=== PATIENT | male | born 1985 | race Caucasian/White ===

== ENCOUNTER 2018-01-20 10:45 | Emergency (ER) | payer SELFPAY ==
[2018-01-20 10:58] VITALS: BP 179/124
[2018-01-20] MEDS ORDERED: DEXAMETHASONE SOD PHOS INJ 10 MG/1 ML VIAL IM ONE (11:13)
[2018-01-20] MEDS ORDERED: KETOROLAC TROMETHAMINE INJ/PF 30 MG/1 ML SDV IM ONE (11:13)
--- NOTE | 2018-01-20 11:24 | ER Document Report ---
HPI - HPI Pain Level: 5 Notes: Patient is a 32-year-old male with no significant past medical history who presents to the ED complaining of a possible pinched nerve to his left shoulder area 1 week. 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 Patient states that he uses that arm often. Patient states that on occasion he will have tingling into his left thumb. Patient states that he also has muscle soreness and tightness in that area. He did have someone try to massage it out, but did not resolve his symptoms. Patient denies any injury. Patient states that he has not had any neck pain. Denies any drug allergies. Denies any smoking or IV drug use. Denies any headache, fever, head injury, changes in vision/speech/mentation/hearing, URI, sore throat, chest pain, palpitations, syncope, cough, shortness of breath, wheeze, dyspnea, abdominal pain, nausea/vomiting/diarrhea, urinary retention, dysuria, hematuria , loss of control of bowel or bladder, muscle paralysis/weakness, or rash. - ROS Systems Reviewed and Negative: Yes All other systems reviewed and negative - MUSCULOSKELETAL Musculoskeletal: REPORTS: Extremity pain - L shoulder Past Medical History - Social History Smoking Status: Never Smoker Family History: Reviewed & Not Pertinent Patient has suicidal ideation: No Patient has homicidal ideation: No Pulmonary Medical History: Denies: Hx Asthma Endocrine Medical History: Denies: Hx Diabetes Mellitus Type 2 Renal/ Medical History: Denies: Hx Peritoneal Dialysis Psychiatric Medical History: Reports: Hx Anxiety, Hx Post Traumatic Stress Disorder - Immunizations Hx Diphtheria, Pertussis, Tetanus Vaccination: No Vertical Provider Document - CONSTITUTIONAL Agree With Documented VS: Yes Notes: PHYSICAL EXAMINATION: GENERAL: Well-appearing, well-nourished and in no acute distress. A&Ox4. Answers questions appropriately. HEAD: Atraumatic, normocephalic. EYES: Pupils equal round and reactive to light, extraocular movements intact, sclera anicteric, conjunctiva are normal. NECK: Normal range of motion, supple without lymphadenopathy. No rigidity. No midline tenderness. Spurling negative. + mild tenderness to the left c- paraspinal mm and into the left trapezius muscle which correlates with pain described. LUNGS: Breath sounds clear to auscultation bilaterally and equal. No wheezes rales or rhonchi. HEART: Regular rate and rhythm without murmurs, rubs, gallops. Musculoskeletal: LUE and Ext's b/l otherwise: FROM to passive/active. Strength 5+/5. No deficits noted. No bony tenderness of extremities. N/V intact. Negative impingement test. Tinel/phalen negative at the wrist. Back: FROM to passive/active. Strength 5+/5. No vertebral point tenderness, stepoffs, or deformities. No other bony tenderness or ecchymosis. Extremities: No cyanosis, clubbing, or edema b/l. Peripheral pulses 2+. Capillary refill less than 2 seconds. NEUROLOGICAL: Cranial nerves grossly intact. Normal speech, normal gait. Normal sensory, motor exams. Reflexes 2+ b/l. PSYCH: Normal mood, normal affect. SKIN: Warm, Dry, normal turgor, no rashes or lesions noted. - INFECTION CONTROL TRAVEL OUTSIDE OF THE [place] IN LAST 30 DAYS: No Course - Re-evaluation Re-evalutation: 01/20/18 11:21 Patient is an afebrile, well-hydrated, 32-year-old male who presents to the ED with left trapezius muscle strain/spasm with neuritis down his left upper extremity. Vitals are acceptable without any significant tachycardia, tachypnea , or hypoxia. PE is otherwise unremarkable for any focal neurological deficits. Patient is nontoxic-appearing. Patient has reproducible tenderness on exam to left trapezius muscle and left C paraspinal muscle. There is no bony tenderness. No labs or imaging warranted at this time based on H&P. Toradol and Decadron given today. Low suspicion for any meningitis, fracture, expanding/ruptured AAA, cauda equina syndrome, epidural mass lesion/abscess, herniated disc causing severe spinal stenosis, or other systemic infection at this time. Patient is aware that his condition can change from initial presentation and that he needs monitor symptoms closely for any acute changes. I will send him home with a prescription for baclofen and naproxen. Conservative measures otherwise for symptoms. BP elevated, pt to have rechecked with PCM and consider medications, risks reviewed. Recheck with your PCM in 3-5 days. Consider consult orthopedics. Return to the ED with any worsening/ concerning symptoms otherwise as reviewed in discharge. Patient is in agreement. - Vital Signs Vital signs: Temp Pulse Resp BP Pulse Ox 97.4 F 89 18 179/124 H 98 07/02/18 10:57 01/20/18 10:57 01/20/18 10:57 01/20/18 10:57 01/20/18 10:57 Discharge - Discharge Clinical Impression: Trapezius muscle spasm Strain of left trapezius muscle Qualifiers: Encounter type: initial encounter Qualified Code(s): S46.812A - Strain of other muscles, fascia and tendons at shoulder and upper arm level, left arm, initial encounter Condition: Stable Disposition: HOME, SELF-CARE Instructions: Muscle Strain ([facility]), Muscle Relaxers ([facility]) Additional Instructions: Rest, Ice, Compression Tylenol/ibuprofen as needed Light stretches daily Strength exercises as able Moist heat and massage may help F/u with your PCP in 3-5 days for a recheck Consider consult(s) with Orthopedics/physical therapy for ongoing/worsening symptoms Return to the ED with any worsening symptoms and/or development of fever, headache, chest pain, palpitations, syncope, shortness of breath, trouble breathing, abdominal pain, n/v/d, muscle weakness/paralysis, numbness/tingling, swelling, redness, or other worsening symptoms that are concerning to you. Your blood pressure is elevated and puts you at higher risk for heart attack and strokes. He should have this checked by her primary care provider and consider medication therapy and lifestyle changes. Prescriptions: Baclofen [Baclofen 10 mg Tablet] 5 - 10 mg PO BID PRN #15 tablet PRN Reason: Naproxen 500 mg PO BID PRN #30 tablet PRN Reason: Forms: Elevated Blood Pressure, Return to Work Referrals: [facility] [Provider Group] - Follow up as needed [facility] [Provider Group] - Follow up as needed
== END 2018-01-20 11:32 | disposition home or self-care (01) ==
LOC: ER 10:45
DX: S29.012A Strain of muscle and tendon of back wall of thorax, initial encounter (principal); X58.XXXA Exposure to other specified factors, initial encounter; M62.830 Muscle spasm of back; M79.2 Neuralgia and neuritis, unspecified; R20.2 Paresthesia of skin
CPT/HCPCS: 99283; 96372; J1885; J1100

== ENCOUNTER 2018-11-22 22:50 | Emergency (ER) | payer SELFPAY ==
[2018-11-23] MEDS ORDERED: ASPIRIN 81 MG TABLET, CHEWABLE PO ONE (01:09)
[2018-11-23 01:22] LABS: ABSOLUTE BASOPHILS # (AUTO) 0.1 10^3/uL (0.0-0.2); ABSOLUTE EOSINOPHILS # (AUTO) 0.1 10^3/uL (0.0-0.6); ABSOLUTE LYMPHOCYTES (AUTO) 1.6 10^3/uL (0.5-4.7); ABSOLUTE MONOCYTES (AUTO) 0.6 10^3/uL (0.1-1.4); ABSOLUTE NEUT (AUTO) 6.3 10^3/uL (1.7-8.2); BASOPHILS % (AUTO) 0.6 % (0-2); EOSINOPHILS % (AUTO) 0.8 % (0-6); HEMATOCRIT 41.8 % (37.9-51.0); HEMOGLOBIN 14.3 g/dL (13.5-17.0); LYMPHOCYTES % (AUTO) 18.7 % (13-45); MEAN CORPUSCULAR HEMOGLOBIN 30.1 pg (27.0-33.4); MEAN CORPUSCULAR HGB CONC 34.3 g/dL (32.0-36.0); MEAN CORPUSCULAR VOLUME 88 fl (80-97); MONOCYTES % (AUTO) 7.3 % (3-13); PLATELET COUNT 294 10^3/uL (150-450); RED BLOOD COUNT 4.76 10^6/uL (4.35-5.55); RED CELL DISTRIBUTION WIDTH 12.9 % (11.5-14.0); SEGMENTED NEUTROPHILS % (AUTO) 72.6 % (42-78); TOTAL CELLS COUNTED % (AUTO) 100 %; WHITE BLOOD COUNT 8.7 10^3/uL (4.0-10.5)
[2018-11-23 01:51] LABS: ALANINE AMINOTRANSFERASE 38 U/L (21-72); ALBUMIN 4.7 g/dL (3.5-5.0); ALKALINE PHOSPHATASE 70 U/L (38-126); ANION GAP 12 (5-19); ASPARTATE AMINO TRANSFERASE 29 U/L (17-59); BILIRUBIN,DIRECT 0.3 mg/dL (0.0-0.4); BILIRUBIN,TOTAL 0.3 mg/dL (0.2-1.3); BLOOD UREA NITROGEN 18 mg/dL (7-20); CALCIUM 9.7 mg/dL (8.4-10.2); CARBON DIOXIDE 27 mmol/L (22-30); CHLORIDE 105 mmol/L (98-107); CREATINE KINASE 304 U/L (55-170); GLUCOSE 108 mg/dL (75-110); SODIUM 144.4 mmol/L (137-145)
--- NOTE | 2018-11-23 01:54 | RADIOLOGY REPORT (SQ) ---
EXAM DESCRIPTION: XR CHEST 1 VIEW COMPLETED DATE/TME: 11/23/2018 01:09 CLINICAL HISTORY: 33 years, Male, CP COMPARISON: 06/24/2016 chest NUMBER OF VIEWS: 1 TECHNIQUE: Portable chest LIMITATIONS: None. FINDINGS: Heart size normal. Lungs clear. No pneumothorax IMPRESSION: Negative chest copyright 2010 [employer]- All Rights Reserved
[2018-11-23 02:03] LABS: CREATINE KINASE MB 2.61 ng/mL (<4.55)
[2018-11-23 02:06] LABS: TROPONIN I < 0.012 ng/mL
[2018-11-23] MEDS ORDERED: LISINOPRIL 10 MG TABLET PO ONE (02:33)
[2018-11-23] MEDS ORDERED: HYDROCHLOROTHIAZIDE 12.5 MG TABLET PO ONE (02:33)
[2018-11-23 04:01] LABS: URINE AMPHETAMINES SCREEN NEGATIVE; URINE BARBITURATES SCREEN NEGATIVE; URINE BENZODIAZEPINES SCREEN NEGATIVE; URINE COCAINE SCREEN NEGATIVE; URINE MARIJUANA (THC) SCREEN UNCONFIRMED POSITIVE; URINE METHADONE SCREEN NEGATIVE; URINE PHENCYCLIDINE SCREEN NEGATIVE
--- NOTE | 2018-11-23 05:37 | ER Document Report ---
ED General - General Chief Complaint: Chest Tightness Stated Complaint: POSSIBLE ANXIETY Time Seen by Provider: 11/23/18 01:08 Primary Care Provider: [facility] [Provider Group] - Follow up as needed [facility] [Provider Group] - Follow up as needed Notes: Patient is a 33-year-old male presents to the emergency department feeling anxious. Patient states intermittently for the last couple of days he has felt a dull pressure on the left side of his chest. Patient states he knows he has a history of anxiety and used to take Xanax. States he stopped taking his Xanax 6 months ago because he ran out. States he recently lost his insurance and has had no follow-up. Patient states he has been told multiple times that he has high blood pressure but states no medical provider has ever placed him on medications. Patient's denying any headache, blurred vision, dizziness. Patient currently states he is chest pain-free. Patient's denying any nausea, vomiting, diarrhea, is afebrile. Patient voices that when he gets anxious he feels as though he may develop chest pain and then he does develop chest pain. Again patient is currently denying any chest pain at this time. Also continues to deny shortness of breath. TRAVEL OUTSIDE OF THE [place] IN LAST 30 DAYS: No - Related Data Allergies/Adverse Reactions: No Known Allergies Allergy (Verified 11/23/18 03:55) Past Medical History - General Information source: Patient - Social History Smoking Status: Former Smoker Frequency of alcohol use: Occasional Drug Abuse: Marijuana Family History: Reviewed & Not Pertinent Patient has suicidal ideation: No Patient has homicidal ideation: No - Past Medical History Cardiac Medical History: Reports: Hx Hypertension Pulmonary Medical History: Denies: Hx Asthma Endocrine Medical History: Denies: Hx Diabetes Mellitus Type 2 Renal/ Medical History: Denies: Hx Peritoneal Dialysis Psychiatric Medical History: Reports: Hx Anxiety, Hx Post Traumatic Stress Disorder - Immunizations Hx Diphtheria, Pertussis, Tetanus Vaccination: No Review of Systems - Review of Systems Constitutional: denies: Fever EENT: No symptoms reported Cardiovascular: See HPI Respiratory: No symptoms reported Gastrointestinal: No symptoms reported Genitourinary: No symptoms reported Male Genitourinary: No symptoms reported Musculoskeletal: No symptoms reported Skin: No symptoms reported Hematologic/Lymphatic: No symptoms reported Neurological/Psychological: See HPI Physical Exam - Vital signs Vitals: Pulse Ox 98 11/23/18 01:31 - Notes Notes: GENERAL: Alert, interacts well. No acute distress. HEAD: Normocephalic, atraumatic. EYES: Pupils equal, round, and reactive to light. Extraocular movements intact. ENT: Oral mucosa moist, tongue midline. NECK: Full range of motion. Supple. Trachea midline. LUNGS: Clear to auscultation bilaterally, no wheezes, rales, or rhonchi. No respiratory distress. HEART: Regular rate and rhythm. No murmur ABDOMEN: Soft, non-tender. Non-distended. Bowel sounds present in all 4 quadrants. EXTREMITIES: Moves all 4 extremities spontaneously. No edema, normal radial and dorsalis pedis pulses bilaterally. No cyanosis. 5 out of 5 strength all 4 extremities BACK: no cervical, thoracic, lumbar midline tenderness. No saddle anesthesia, normal distal neurovascular exam. NEUROLOGICAL: Alert and oriented x3. Normal speech. cranial nerves II through XII grossly intact PSYCH: Normal affect, normal mood. SKIN: Warm, dry, normal turgor. No rashes or lesions noted. Course - Re-evaluation Re-evalutation: 11/23/18 05:35 Laboratory 11/23/18 11/23/18 11/23/18 01:10 01:10 01:10 WBC 8.7 RBC 4.76 Hgb 14.3 Hct 41.8 MCV 88 MCH 30.1 MCHC 34.3 RDW 12.9 Plt Count 294 Seg Neutrophils % 72.6 Lymphocytes % 18.7 Monocytes % 7.3 Eosinophils % 0.8 Basophils % 0.6 Absolute Neutrophils 6.3 Absolute Lymphocytes 1.6 Absolute Monocytes 0.6 Absolute Eosinophils 0.1 Absolute Basophils 0.1 Sodium 144.4 Potassium 4.0 Chloride 105 Carbon Dioxide 27 Anion Gap 12 BUN 18 Creatinine 1.12 Est GFR ( Amer) > 60 Est GFR (Non-Af Amer) > 60 Glucose 108 Calcium 9.7 Total Bilirubin 0.3 Direct Bilirubin 0.3 Neonat Total Bilirubin Not Reportable Neonat Direct Bilirubin Not Reportable Neonat Indirect Bili Not Reportable AST 29 ALT 38 Alkaline Phosphatase 70 Creatine Kinase 304 H CK-MB (CK-2) 2.61 Troponin I < 0.012 Total Protein 8.0 Albumin 4.7 Urine Opiates Screen Urine Methadone Screen Ur Barbiturates Screen Ur Phencyclidine Scrn Ur Amphetamines Screen U Benzodiazepines Scrn Urine Cocaine Screen U Marijuana (THC) Screen 11/23/18 11/23/18 02:34 03:55 WBC RBC Hgb Hct MCV MCH MCHC RDW Plt Count Seg Neutrophils % Lymphocytes % Monocytes % Eosinophils % Basophils % Absolute Neutrophils Absolute Lymphocytes Absolute Monocytes Absolute Eosinophils Absolute Basophils Sodium Potassium Chloride Carbon Dioxide Anion Gap BUN Creatinine Est GFR ( Amer) Est GFR (Non-Af Amer) Glucose Calcium Total Bilirubin Direct Bilirubin Neonat Total Bilirubin Neonat Direct Bilirubin Neonat Indirect Bili AST ALT Alkaline Phosphatase Creatine Kinase CK-MB (CK-2) Troponin I < 0.012 Total Protein Albumin Urine Opiates Screen NEGATIVE Urine Methadone Screen NEGATIVE Ur Barbiturates Screen NEGATIVE Ur Phencyclidine Scrn NEGATIVE Ur Amphetamines Screen NEGATIVE U Benzodiazepines Scrn NEGATIVE Urine Cocaine Screen NEGATIVE U Marijuana (THC) Screen UNCONFIRMED POSITIVE Patient has had delta negative troponins in the emergency room. Continues to be chest pain-free. Patient has been treated with antihypertensive medications in the emergency department. We will send him home with same prescription. Discussed with him importance of close follow-up at [facility] or [facility]. Patient stable for discharge. - Vital Signs Vital signs: Temp Pulse Resp BP Pulse Ox 106 H 16 178/98 H 98 11/23/18 01:32 11/23/18 04:31 11/23/18 05:30 11/23/18 04:31 - Laboratory Result Diagrams: 11/23/18 01:10 11/23/18 01:10 Laboratory results interpreted by me: 11/23/18 01:10 Creatine Kinase 304 H Discharge - Discharge Clinical Impression: Hypertension Qualifiers: Hypertension type: unspecified Qualified Code(s): I10 - Essential (primary) hy pertension Chest pain Qualifiers: Chest pain type: unspecified Qualified Code(s): R07.9 - Chest pain, unspecified Condition: Stable Disposition: HOME, SELF-CARE Instructions: Anxiety ([facility]), Chest Pain of Unclear Cause ([facility]), High Blood Pressure, Requiring Treatment ([facility]) Additional Instructions: As we discussed you have been seen and treated in the emergency department for high blood pressure. I have started you on an antihypertensive medication. Please make sure you take this as prescribed. It is very important that you follow-up at [facility] or [facility] for continued care. Please also return to the emergency room should you have any concerns. Prescriptions: Lisinopril/Hydrochlorothiazide [Lisinopril-Hctz 20-12.5 mg Tab] 1 each PO DAILY #30 tablet Forms: Elevated Blood Pressure Referrals: [facility] [Provider Group] - Follow up as needed [facility] [Provider Group] - Follow up as needed
[2018-11-23 05:45] VITALS: BP 169/113
--- NOTE | 2018-11-23 22:38 | EKG REPORT ---
SEVERITY:- OTHERWISE NORMAL ECG - SINUS TACHYCARDIA : Confirmed by: Demetri Burgos 23-Nov-2018 22:37:09
== END 2018-11-23 05:49 | disposition home or self-care (01) ==
LOC: ER 22:50
DX: I10 Essential (primary) hypertension (principal); R07.89 Other chest pain; E11.9 Type 2 diabetes mellitus without complications; F17.200 Nicotine dependence, unspecified, uncomplicated; F12.10 Cannabis abuse, uncomplicated
CPT/HCPCS: 36415; 71045; 80053; 80307; 82550; 82553; 84484; 85025; 93005; 93010; 99284

== ENCOUNTER 2018-12-31 22:52 | Emergency (ER) | payer SELFPAY ==
--- NOTE | 2019-01-01 00:21 | ER Document Report ---
ED Medical Screen (RME) - General Chief Complaint: Chest Pain Stated Complaint: CHEST PAIN/BP ISSUES/ACID REFLUX Time Seen by Provider: 01/01/19 00:12 Notes: Patient is a 33-year-old male who presents with a chief complaint chest pain. He states that he was seen here about 1 month ago and was placed on lisinopril for his high blood pressure. He also states that he does have acid reflux and he has been taking [id number] Nexium to help with his symptoms. He states that it does help, but he ran out of his lisinopril, therefore he was anxious and started to have chest pain. He states that the pain is in his left lower chest. Exam: Tenderness to left lower chest. I have greeted and performed a rapid initial assessment of this patient. A comprehensive ED assessment and evaluation of the patient, analysis of test results and completion of medical decision making process will be conducted by an additional ED providers. TRAVEL OUTSIDE OF THE [place] IN LAST 30 DAYS: No - Related Data Allergies/Adverse Reactions: No Known Allergies Allergy (Verified 11/23/18 03:55) Past Medical History - Past Medical History Cardiac Medical History: Reports: Hx Hypertension Pulmonary Medical History: Denies: Hx Asthma Endocrine Medical History: Denies: Hx Diabetes Mellitus Type 2 Renal/ Medical History: Denies: Hx Peritoneal Dialysis Psychiatric Medical History: Reports: Hx Anxiety, Hx Post Traumatic Stress Disorder - Immunizations Hx Diphtheria, Pertussis, Tetanus Vaccination: No Physical Exam - Vital signs Vitals: Temp Pulse Resp BP Pulse Ox 97.6 F 113 H 16 179/92 H 99 12/31/18 22:58 12/31/18 22:58 12/31/18 22:58 12/31/18 22:58 12/31/18 22:58 Course - Vital Signs Vital signs: Temp Pulse Resp BP Pulse Ox 97.6 F 113 H 16 179/92 H 99 12/31/18 22:58 12/31/18 22:58 12/31/18 22:58 12/31/18 22:58 12/31/18 22:58
--- NOTE | 2019-01-01 01:56 | RADIOLOGY REPORT (SQ) ---
EXAM DESCRIPTION: XR CHEST 1 VIEW COMPLETED DATE/TME: 01/01/2019 00:17 CLINICAL HISTORY: 33 years, Male, chest pain COMPARISON: 11/23/2018 chest NUMBER OF VIEWS: 1 TECHNIQUE: Portable chest LIMITATIONS: None. FINDINGS: Heart size normal. Lungs clear. No pneumothorax IMPRESSION: Negative chest copyright 2010 [employer]- All Rights Reserved
[2019-01-01 02:18] LABS: ABSOLUTE BASOPHILS # (AUTO) 0.1 10^3/uL (0.0-0.2); ABSOLUTE EOSINOPHILS # (AUTO) 0.1 10^3/uL (0.0-0.6); ABSOLUTE MONOCYTES (AUTO) 0.5 10^3/uL (0.1-1.4); ABSOLUTE NEUT (AUTO) 6.7 10^3/uL (1.7-8.2); BASOPHILS % (AUTO) 0.9 % (0-2); EOSINOPHILS % (AUTO) 0.8 % (0-6); HEMATOCRIT 43.1 % (37.9-51.0); HEMOGLOBIN 14.6 g/dL (13.5-17.0); LYMPHOCYTES % (AUTO) 21.6 % (13-45); MEAN CORPUSCULAR HEMOGLOBIN 30.2 pg (27.0-33.4); MEAN CORPUSCULAR HGB CONC 33.9 g/dL (32.0-36.0); MEAN CORPUSCULAR VOLUME 89 fl (80-97); MONOCYTES % (AUTO) 5.8 % (3-13); PLATELET COUNT 306 10^3/uL (150-450); RED BLOOD COUNT 4.83 10^6/uL (4.35-5.55); RED CELL DISTRIBUTION WIDTH 13.1 % (11.5-14.0); SEGMENTED NEUTROPHILS % (AUTO) 70.9 % (42-78); TOTAL CELLS COUNTED % (AUTO) 100 %; WHITE BLOOD COUNT 9.4 10^3/uL (4.0-10.5)
[2019-01-01 02:36] LABS: ALANINE AMINOTRANSFERASE 33 U/L (21-72); ALBUMIN 4.9 g/dL (3.5-5.0); ALKALINE PHOSPHATASE 65 U/L (38-126); ANION GAP 12 (5-19); ASPARTATE AMINO TRANSFERASE 27 U/L (17-59); BILIRUBIN,DIRECT 0.3 mg/dL (0.0-0.4); BILIRUBIN,TOTAL 0.3 mg/dL (0.2-1.3); BLOOD UREA NITROGEN 10 mg/dL (7-20); CALCIUM 10.1 mg/dL (8.4-10.2); CARBON DIOXIDE 28 mmol/L (22-30); CHLORIDE 101 mmol/L (98-107); GLUCOSE 93 mg/dL (75-110); POTASSIUM 4.6 mmol/L (3.6-5.0); SODIUM 141.4 mmol/L (137-145); TOTAL PROTEIN 8.3 g/dL (6.3-8.2)
--- NOTE | 2019-01-01 04:56 | ER Document Report ---
ED Cardiac - General Chief Complaint: Chest Pain Stated Complaint: CHEST PAIN/BP ISSUES/ACID REFLUX Time Seen by Provider: 01/01/19 00:12 Notes: Patient is a 33-year-old male who presents with a chief complaint chest pain. He states that he was seen here about 1 month ago and was placed on lisinopril for his high blood pressure. He also states that he does have acid reflux and he has been taking [id number] Nexium to help with his symptoms. He states that it does help, but he ran out of his lisinopril, therefore he was anxious and started to have chest pain. He states that the pain is in his left lower chest. TRAVEL OUTSIDE OF THE [place] IN LAST 30 DAYS: No - Related Data Allergies/Adverse Reactions: No Known Allergies Allergy (Verified 11/23/18 03:55) Past Medical History - Social History Smoking Status: Current Every Day Smoker Family History: Reviewed & Not Pertinent - Past Medical History Cardiac Medical History: Reports: Hx Hypertension Pulmonary Medical History: Denies: Hx Asthma Endocrine Medical History: Denies: Hx Diabetes Mellitus Type 2 Renal/ Medical History: Denies: Hx Peritoneal Dialysis Psychiatric Medical History: Reports: Hx Anxiety, Hx Post Traumatic Stress Disorder - Immunizations Hx Diphtheria, Pertussis, Tetanus Vaccination: No Review of Systems - Review of Systems Notes: REVIEW OF SYSTEMS: CONSTITUTIONAL : Denies recent illness. Denies recent unintentional weight loss. Denies fever, chills, or sweats. EENT: Denies eye, ear, throat, or mouth pain, discharge, or symptoms. Denies nasal or sinus congestion. CARDIOVASCULAR: See HPI RESPIRATORY: Denies shortness of breath, cough, congestion, difficulty breathing, or wheezing. GASTROINTESTINAL: See HPI GENITOURINARY: Denies difficulty urinating, burning, blood in urine, urgency or frequency. MUSCULOSKELETAL: Denies neck and back pain. Denies joint pain or swelling. SKIN: Denies rash, itchiness, or lesions HEMATOLOGIC : Denies easy bruising or bleeding. LYMPHATIC: Denies swollen, painful, enlarged glands. NEUROLOGICAL: Denies no numbness or tingling denies weakness. Denies headache. Denies altered mental status. Denies alteration in speech. PSYCHIATRIC: Denies stress, anxiety, alteration in sleep patterns, or depression. All other systems reviewed and negative. Physical Exam - Vital signs Vitals: Temp Pulse Resp BP Pulse Ox 97.6 F 113 H 16 179/92 H 99 12/31/18 22:58 12/31/18 22:58 12/31/18 22:58 12/31/18 22:58 12/31/18 22:58 - Notes Notes: PHYSICAL EXAMINATION: GENERAL: Appears well, healthy, well-nourished, no acute distress. HEAD: Normocephalic, atraumatic. EYES: PERRL, conjunctiva normal, all extraocular movements intact, sclera nonicteric ENT: Moist mucous membranes. NECK: Supple, no noticeable swelling, redness, rash. Normal range of motion. LUNGS: Equal breath sounds bilaterally and clear to auscultation. No wheezes rales or rhonchi. CARDIOVASCULAR: S1-S2, regular rate, regular rhythm. Radial pulses 2+, normal. ABDOMEN: Normoactive bowel sounds. Soft, nontender, no guarding, no rebound tenderness, and no masses palpated. EXTREMITIES: Normal strength and range of motion, no pitting or edema. No cyanosis. NEUROLOGICAL: Moves all extremities upon command. Strength 5/5 in all extremities. PSYCH: Normal mood, normal affect. SKIN: Warm, dry. No rash, lesions, ulcerations noted. Normal skin turgor. Course - Re-evaluation Re-evalutation: 01/01/19 05:00 Patient's labs are all normal at this time. Second troponin will not be drawn, as patient's onset of chest pain was a few days ago. I do not suspect patient has any life-threatening etiology at this time. Differential diagnosis for the patient's chest pain includes ischemic chest pain (STEMI, NSTEMI, or unstable angina), pulmonary embolism, aortic dissection, pericarditis, chest wall pain. Based off patient's physical exam, history, EKG that does not show ST depressions or elevations, and troponin, the patient's heart score is 3 or less. Chest x-ray is negative for pneumonia, widened mediastinum, or pneumothorax. I do not suspect aortic dissection due to history, symmetrical pulses, chest x- ray, and vital signs. HEART Score: History:0 EK Age:0 Risk Factors:1 Troponin:0 Total: 1 I have discussed with the patient the risk factors, age, and diagnostic studies. Based on these factors, the likelihood of the patient's chest pain being from a heart attack is a very low. Patient is able to make decisions for themself and verbalized understanding that their chest pain is most likely not due to heart attack. The patient has chosen to follow-up with a magnetic locater in regards to their chest pain. Verbal instructions for return to the emergency department was given, and patient verbalized understanding and will be discharged. - Vital Signs Vital signs: Temp Pulse Resp BP Pulse Ox 98.1 F 89 18 140/90 H 98 01/01/19 05:00 01/01/19 05:00 01/01/19 05:00 01/01/19 05:00 01/01/19 05:00 - Laboratory Result Diagrams: 01/01/19 01:30 01/01/19 01:30 Laboratory results interpreted by me: 01/01/19 01:30 Total Protein 8.3 H - EKG Interpretation by Me Additional EKG results interpreted by me: 01/01/19 Sinus rhythm. Rate 86. RI 144; QRS 108; QT 348; QTc 417. No ST elevations or depressions noted no significant change from previous EKG dated Nov 23 2018. Discharge - Discharge Clinical Impression: Essential hypertension Chest pain Qualifiers: Chest pain type: unspecified Qualified Code(s): R07.9 - Chest pain, unspecified GERD (gastroesophageal reflux disease) Qualifiers: Esophagitis presence: esophagitis presence not specified Qualified Code(s): K21.9 - Gastro-esophageal reflux disease without esophagitis Condition: Stable Disposition: HOME, SELF-CARE Additional Instructions: You were seen today in the emergency department for chest pain, acid reflux, and high blood pressure. Your labs are all normal. Your x-ray is normal. You are being prescribed omeprazole and lisinopril/hydrochlorothiazide. Please take as directed. Please follow-up with [facility] in regards to this visit. Prescriptions: Esomeprazole Mag Trihydrate [Nexium] 40 mg PO DAILY #30 capsule. Lisinopril/Hydrochlorothiazide [Lisinopril-Hctz 20-12.5 mg Tab] 1 each PO DAILY #30 tablet Forms: Return to Work
[2019-01-01 05:14] VITALS: BP 140/90
--- NOTE | 2019-01-01 08:13 | EKG REPORT ---
SEVERITY:- NORMAL ECG - SINUS RHYTHM : Confirmed by: Cain Jackson MD 01-Jan-2019 08:12:16
== END 2019-01-01 05:15 | disposition home or self-care (01) ==
LOC: ER 22:52
DX: R07.9 Chest pain, unspecified (principal); K21.9 Gastro-esophageal reflux disease without esophagitis; I10 Essential (primary) hypertension; Z79.899 Other long term (current) drug therapy; F17.200 Nicotine dependence, unspecified, uncomplicated
CPT/HCPCS: 36415; 71045; 80053; 84484; 85025; 93005; 93010; 99285